=== PATIENT | female | born 1995 | race Hispanic/Latino ===

== ENCOUNTER 2020-01-03 14:18 | Emergency (ER) | payer OTHER ==
[~2020-01-03] VITALS: Ht 162.6 cm; Wt 79.4 kg
[~2020-01-03 14:18] MED LIST: IRON240 MG PO; PRENATAL VITAM1 EACH PO
== END 2020-01-03 18:06 | disposition home or self-care (01) ==
LOC: ED 14:18
DX: O21.0 Mild hyperemesis gravidarum (principal); Z3A.01 Less than 8 weeks gestation of pregnancy
CPT/HCPCS: 81001; 96360; 99284-25; J7042

== ENCOUNTER 2020-07-30 07:45 | Inpatient (IN) | payer OTHER ==
--- NOTE | 2020-07-31 12:10 | PR ---
[facility] [address] [facility] [place] [address] Signed PP Progress Notes Datetime Report Generated by CPN: 07/31/2020 12:10 SUBJECTIVE: [id number] Pain: Within Normal Limits Nausea/Vomiting: Denies Vital Signs: [id number] Vital Signs: Reviewed; Within Normal Limits Notable Details: PP Hgb/Hct = 10.0/29.7 EXAM: Ongoing Abdomen/Uterus: Normal Lochia: Normal Extremities: Normal IMPRESSION/PLAN/PROCEDURES: [id number] Impression: Normal Progression Plan: Discharge Procedures: None Progress Notes: Doing well, without complaint, ready to go home. Signing Physician: Shayna Beard MD Copies: ~ *Electronically Signed* 07/31/20 1210 SHAYNA BEARD MD PATIENT NAME: NIEVES SHIRLEY PROGRESS NOTE DATE OF : 89 PHYSICIAN: SHAYNA BEARD MD RPT #: [id number] REPORT IS CONFIDENTIAL AND NOT TO BE RELEASED WITHOUT AUTHORIZATION
== END 2020-07-31 12:58 | disposition home or self-care (01) | DRG 806 ==
LOC: FBCO 07:45 → FBC 07:59
PROVIDERS: ADMIT General Practice; ATTEND General Practice
PROC: 10E0XZZ Delivery of Products of Conception, External Approach (ICD-10-PCS; principal; 2020-07-30)
PROC: 0HQ9XZZ Repair Perineum Skin, External Approach (ICD-10-PCS; 2020-07-30)
DX: O69.81X0 Labor and delivery complicated by cord around neck, without compression, not applicable or unspecified (principal); O99.324 Drug use complicating childbirth; Z37.0 Single live birth; F12.90 Cannabis use, unspecified, uncomplicated; Z3A.39 39 weeks gestation of pregnancy; Z20.822 Contact with and (suspected) exposure to COVID-19; O77.0 Labor and delivery complicated by meconium in amniotic fluid; O70.1 Second degree perineal laceration during delivery; Z87.891 Personal history of nicotine dependence; Z86.19 Personal history of other infectious and parasitic diseases
CPT/HCPCS: 36415; 85027; A9270; J2590; J7121; U0003

== ENCOUNTER 2025-04-11 09:30 | Emergency (ER) | payer OTHER ==
[~2025-04-11] VITALS: Ht 165.1 cm; Wt 77.0 kg
--- OUTSIDE RECORDS SUMMARY | 2025-04-11 09:37 | XMS ---
PreManage Notification: NIEVES SHIRLEY Security Patient Financial Coordinator Events No recent Security Events currently on file CRITERIA MET - [facility] - 2 Visits in 30 Days CARE PROVIDERS -[facility] Dentist: Kiln Repairer [facility] PHONE: [phone] -[facility] Dentist: Kiln Repairer [facility] PHONE: [phone] -[place]- Dentist: Kiln Repairer [facility] PHONE: [phone] [facility]: [facility] FAMILY PHONE: [phone] Bakari has no Care Guidelines for this patient. [place] VISIT COUNT (12 MO.) 1 [facility]AT[facility] TOTAL 2 NOTE: Visits indicate total known visits. ED/UCC VISIT TRACKING (12 MO.) 04/11/2025 09:30 [facility] [place] TYPE: Emergency COMPLAINT: - VOMITING/ 5 WEEKS PREG 04/06/2025 08:55 [facility] [place] TYPE: Emergency DIAGNOSES: - Vomiting of , unspecified - vomiting INPATIENT VISIT TRACKING (12 MO.) No inpatient visits to display in this time frame [email or web address]
[2025-04-11] MEDS ORDERED: METOCLOPRAMIDE10 MG PO (09:47)
[2025-04-11] MEDS ORDERED: PROMETHAZINE HC25 M1 PO (09:48)
[2025-04-11 09:59] LABS: BASOPHILS 0.4 % (0.1-1.2); EOSINOPHILS 0.1 % (0.7-5.8); LYMPHOCYTES 12.8 % (19.3-51.7); MCH 31.1 PG (25.6-32.2); MCHC 35.7 g/dL (32.2-35.5); MCV 87.0 fL (79.4-94.8); MONOCYTES 5.2 % (4.7-12.5); NEUTROPHILS 81.2 % (34.0-71.1); RBC 4.54 M/uL (3.93-5.22)
[2025-04-11] MEDS ORDERED: SODIUM CHLORIDE 0.9% 1,000 ML IV ONE ×2 (10:00→11:30)
[2025-04-11] MEDS ORDERED: METOCLOPRAMIDE HCL 10 MG/2 ML SDV IV ONE (10:00)
[2025-04-11 10:24] LABS: ALT (SGPT) 15.0 U/L (14-59); AST (SGOT) 11.0 U/L (15-37); GLOMERULAR FILTRATION RATE,EST 121.0 mL/min (>60); PROTEIN, TOTAL 8.7 g/dL (6.4-8.2); UREA NITROGEN 11.0 mg/dL (7-18)
[2025-04-11 11:31] LABS: BLOOD/HGB, URINE NEGATIVE (Negative); KETONE, URINE SMALL (Negative); LEUK ESTERASE, URINE TRACE (negative); NITRITE, URINE POSITIVE (negative)
[2025-04-11 11:39] LABS: BACTERIA, URINE RARE /hpf (negative); CASTS, URINE NONE SEEN \\lpf; CRYSTALS, URINE NONE SEEN (0-1+); EPITHELIAL CELLS, URINE SQUAMOUS 3+ /lpf (0-1+); REFLEX CULTURE, URINE No (No)
[2025-04-11] MEDS ORDERED: DICLEGIS DR 101 EACH PO (11:53)
[2025-04-11] MEDS ORDERED: PROMETHAZINE HC50 M1 PR (11:53)
[2025-04-11 12:04] VITALS: BP 125/75
== END 2025-04-11 12:04 | disposition home or self-care (01) ==
LOC: ED 09:30
PROVIDERS: Emergency Medicine
DX: O21.0 Mild hyperemesis gravidarum (principal); Z3A.01 Less than 8 weeks gestation of pregnancy
CPT/HCPCS: 36415; 80053; 81001; 83735; 85025; 96361; 96374; 96375; 99284-25; J1200; J2765; J7030